=== PATIENT | female | born 2000 | race African-American/Black ===

== ENCOUNTER 2022-03-29 17:15 | Emergency (ER) | payer OTHER ==
[~2022-03-29] VITALS: Ht 170.2 cm; Wt 95.3 kg
[2022-03-29 17:16] VITALS: BP 136/84
--- NOTE | 2022-03-29 17:28 | NUR ---
pt seen and evaluated. medically cleared. d/c in stable condition.
== END 2022-03-29 17:28 ==
LOC: ER 17:18
DX: Z00.00 Encounter for general adult medical examination without abnormal findings (principal); E11.9 Type 2 diabetes mellitus without complications